=== PATIENT | female | born 1960 | race Caucasian/White ===

== ENCOUNTER 2020-12-13 17:27 | Outpatient (CLI) | payer OTHER, SELFPAY ==
--- NOTE | ~2020-12-13 | MR_ITS ---
EXAMINATION: MR lumbar spine wo [facility] EXAM DATE: 12/13/2020 18:22 INDICATION: Numbness down left leg. TECHNIQUE: Multi-sequential, multiplanar MR images of the lumbar spine were obtained without contrast . Sagittal T1, T2, T2 fat saturation images. Axial T2 weighted images. There is no prior study for comparison. FINDINGS: Chronic bilateral L5 spondylolysis with 7 mm anterolisthesis L5 on S1, moderate to severe l oss of this disc height. Mild disc disease L3-4 with 2 mm anterolisthesis. Conus medullaris terminate s at the L1 level. There is a central disc protrusion at T11-12 indenting the anterior aspect of the conus medullaris, but there is no cord edema, no acute cord compression. There are no suspicious snehal ow signal abnormalities. Paraspinal soft tissue is unremarkable. Level by level evaluation: T12-L1: There is a mild diffuse disc bulge. Facet arthropathy: Mild. Neural foraminal stenosis: No stenosis. Central canal stenosis: No stenosis. L1-L2: There is a mild diffuse disc bulge. Facet arthropathy: Mild. Neural foraminal stenosis: Mild left. Central canal stenosis: Mild. L2-L3: There is a mild to moderate diffuse disc bulge. Facet arthropathy: Mild to moderate. Neural foraminal stenosis: Mild left. Central canal stenosis: Mild. L3-L4: There is a mild diffuse disc bulge. Facet arthropathy: Mild. Neural foraminal stenosis: Minimal bilateral. Central canal stenosis: No stenosis. L4-L5: There is a mild to moderate diffuse disc bulge. Facet arthropathy: Moderate. Neural foraminal stenosis: Moderate right, mild to moderate left. Central canal stenosis: Moderate. L5-S1: There is a moderate diffuse disc bulge. Facet arthropathy: Mild. Neural foraminal stenosis: Moderate to severe left, moderate right. Central canal stenosis: Mild to moderate. IMPRESSION: 1. L5-S1 moderate to severe disc disease and left neural foraminal stenosis. 2. Bilateral L5 spondylolysis, grade 1 anterolisthesis L5 on S1. 3. Moderate L4-5 spondylosis. Reviewed, dictated and finalized at location B.
== END 2020-12-13 17:28 | disposition home or self-care (01) ==
DX: M54.16 Radiculopathy, lumbar region (principal); M43.16 Spondylolisthesis, lumbar region; R53.1 Weakness; M54.5 Low back pain; S39.92XD Unspecified injury of lower back, subsequent encounter; M48.07 Spinal stenosis, lumbosacral region; M51.9 Unspecified thoracic, thoracolumbar and lumbosacral intervertebral disc disorder; M47.816 Spondylosis without myelopathy or radiculopathy, lumbar region
CPT/HCPCS: 72148